=== PATIENT | female | born 1950 ===

== ENCOUNTER 2024-02-27 08:30 | Inpatient (IN) | payer OTHER ==
[~2024-02-27] VITALS: Ht 157.5 cm; Wt 58.1 kg
[2024-02-27] MEDS ORDERED: LEVOTHYROXINE25 MCG (09:49)
[2024-02-27 09:56] LABS: HEMATOCRIT 37.8 % (36.0-45.00); HEMOGLOBIN 12.9 g/dL (12.0-15.00); MEAN CELL VOLUME 99.8 fL (80.00-100.00); MEAN CORPUSCULAR HEMOGLOBIN 34.1 pg (27.00-32.0); MEAN CORPUSCULAR HGB CONC 34.2 g/dl (32.0-36.0); PLATELET COUNT 301 K/uL (150-450); RED BLOOD COUNT 3.78 M/uL (4.00-6.00); RED CELL DISTRIBUTION WIDTH 14.1 % (11.5-14.5)
[2024-02-27 09:59] LABS: PH,URINE 7.5 (5.0-8.0); URINE APPEARANCE Clear; URINE BILIRRUBIN Negative (NEGATIVE); URINE BLOOD Negative; URINE COLOR Yellow; URINE GLUCOSE Negative (NEGATIVE); URINE LEUKOCYTE Negative; URINE NITRATE Negative; URINE PROTEIN Negative (NEGATIVE); URINE UROBILINOGEN 0.2 E.U./dl
[2024-02-27 10:03] LABS: URINE BACTERIA 11.3 uL (0.0-1933); URINE EPITHELIAL CELLS 1.6 uL (0.0-38.8); URINE RBC 2.9 uL (0.0-20.8)
[2024-02-27 10:11] LABS: URINE WBC 1.3 uL (0.0-23.2)
[2024-02-27 10:15] LABS: INR 0.98; PARTIAL THROMBOPLASTIN TIME 27.3 SECONDS (22.0-34.0); PROTHROMBIN TIME 10.3 SECONDS (9.0-11.5)
[2024-02-27 10:31] LABS: ALBUMIN 4.3 gm/dL (3.4-5.0); BILIRUBIN TOTAL 0.42 mg/dL (0.3-1.2); CALCIUM 9.7 mg/dL (8.5-10.1); CREATININE SERUM 0.68 mg/dL (0.55-1.02); GFR 85.29; GLOBULINA 3.1 G/DL (2.4-3.5); POTASSIUM 4.89 mEq/L (3.5-5.1); TOTAL PROTEIN 7.4 gm/dL (6.4-8.2)
[2024-03-05] MEDS ORDERED: ONDANSETRON HCL 2 MG/ML VIAL IV PRN (12:15)
[2024-03-05] MEDS ORDERED: OxyCODONE HCL/APAP UD (PERCOCET) PO PRN (12:15)
[2024-03-05] MEDS ORDERED: KETOROLAC TROMETHAMINE 60 MG VIAL IM ONE (13:45)
[2024-03-05] MEDS ORDERED: BUPIVACAINE HCL 30 ML VIAL IJ ONE (13:45)
[2024-03-05] MEDS ORDERED: LIDOCAINE HCL 1%/EPINEPHRINE 20ML VIAL IJ ONE (13:45)
[2024-03-05] MEDS ORDERED: TRANEXAMIC ACID 100MG/1ML (1000MG) AMPUL IV ONE (13:45)
[2024-03-05] MEDS ORDERED: CEFAZOLIN SODIUM 1,000 MG VIAL IV SCH ×2 (13:45→18:00)
[2024-03-05] MEDS ORDERED: AZELASTIN-FLUTI23 GM (14:12)
[2024-03-05] MEDS ORDERED: MORPHINE SULFATE 4 MG/ML CARTRIDGE IV SCH (18:00)
[2024-03-05] MEDS ORDERED: ORPHENADRINE CITRATE 100 MG TABLET PO SCH (21:00)
[2024-03-05] MEDS ORDERED: GABAPENTIN 100 MG CAPSULE PO SCH (21:00)
[2024-03-06 02:28] LABS: HEMATOCRIT 31.2 % (36.0-45.00); HEMOGLOBIN 10.6 g/dL (12.0-15.00); MEAN CELL VOLUME 101.4 fL (80.00-100.00); MEAN CORPUSCULAR HEMOGLOBIN 34.6 pg (27.00-32.0); MEAN CORPUSCULAR HGB CONC 34.1 g/dl (32.0-36.0); PLATELET COUNT 255 K/uL (150-450); RED BLOOD COUNT 3.07 M/uL (4.00-6.00); RED CELL DISTRIBUTION WIDTH 13.7 % (11.5-14.5)
[2024-03-06] MEDS ORDERED: LEVOTHYROXINE SODIUM 25 MCG TABLET PO SCH (06:00)
[2024-03-06] MEDS ORDERED: ENOXAPARIN SODIUM 30 MG/0.3 ML SYRINGE SUBCUTANEO SCH (09:00)
[2024-03-06] MEDS ORDERED: SOD FERRIC GLUC COMPLX/SUCROSE 62.5 MG/5 ML AMPUL IV SCH (17:37)
[2024-03-06] MEDS ORDERED: Cyanocobalamin/Mecobalamin 1 TAB.SL SL SCH (17:37)
[2024-03-06] MEDS ORDERED: VITAMIN B COMPLEX 1 EACH PO SCH (17:37)
[2024-03-07 02:16] LABS: HEMATOCRIT 29.1 % (36.0-45.00); HEMOGLOBIN 10.1 g/dL (12.0-15.00); MEAN CELL VOLUME 99.1 fL (80.00-100.00); MEAN CORPUSCULAR HEMOGLOBIN 34.4 pg (27.00-32.0); MEAN CORPUSCULAR HGB CONC 34.7 g/dl (32.0-36.0); PLATELET COUNT 229 K/uL (150-450); RED BLOOD COUNT 2.93 M/uL (4.00-6.00); RED CELL DISTRIBUTION WIDTH 14.6 % (11.5-14.5)
[2024-03-07] MEDS ORDERED: GABAPENTIN100 MG PO (10:18)
[2024-03-07] MEDS ORDERED: NORFLEX100MG PO (10:18)
[2024-03-07] MEDS ORDERED: OXYC1TAB9 PO (10:18)
[2024-03-07] MEDS ORDERED: XARELTO10 MG PO (10:19)
== END 2024-03-07 15:24 | disposition home or self-care (01) | DRG 470 ==
LOC: SURH 03-05 07:00 → O/R 03-05 07:00 → OB/GYN 03-05 07:00 → SURH 03-05 08:30 → OB/GYN 03-05 15:01
PROVIDERS: ADMIT Orthopaedic Surgery; ATTEND Orthopaedic Surgery
PROC: 0SRD0J9 Replacement of Left Knee Joint with Synthetic Substitute, Cemented, Open Approach (ICD-10-PCS; principal; 2024-03-05 07:00)
DX: M17.12 Unilateral primary osteoarthritis, left knee (principal); D62 Acute posthemorrhagic anemia; M85.662 Other cyst of bone, left lower leg; E03.9 Hypothyroidism, unspecified